=== PATIENT | female | born 1995 | race Caucasian/White ===

== ENCOUNTER 2016-07-23 20:55 | Emergency (ER) | payer OTHER ==
[2016-07-23 21:11] VITALS: BP 142/78; PULSE 61; TEMP 98.3; BMI 22.1
[2016-07-23 21:35] LABS: URINE APPEARANCE CLOUDY; URINE BILIRUBIN NEGATIVE (NEGATIVE); URINE COLOR LTYELLOW; URINE GLUCOSE (UA) NEGATIVE (NEGATIVE); URINE KETONE NEGATIVE (NEGATIVE); URINE NITRITE NEGATIVE (NEGATIVE); URINE UROBILINOGEN NEGATIVE E.U./dl (0.2-1.0)
[2016-07-23 21:36] LABS: URINE BLOOD 3+ (NEGATIVE); URINE LEUK ESTERASE 3+ (NEGATIVE); URINE PROTEIN 1+ (NEGATIVE)
[2016-07-23 21:40] LABS: URINE BACTERIA MODERATE /hpf (NONE SEEN); URINE MUCUS RARE; URINE RBC 4 /hpf (0-3); URINE WBC 747 /hpf (3-5)
[2016-07-23] MEDS ORDERED: CEPHALEXIN MONOHYDRATE 500 MG CAPSULE (UD) PO ONE (21:40)
[2016-07-23] MEDS ORDERED: PHENAZOPYRIDINE HCL 100 MG TABLET (FP) PO ONE (21:40)
--- NOTE | 2016-07-23 21:52 | PDOC ---
History of Present Illness - General Chief Complaint: Urinary Problem Stated Complaint: PAIN UPON URINATION Time Seen by Provider: 07/23/16 21:13 History Source: Patient Exam Limitations: No Limitations - History of Present Illness Initial Comments: 07/23/16 21:48 CHIEF COMPLAINT: Burning on urination HISTORY OF PRESENT ILLNESS: This is an otherwise healthy 20 year old female who presents for evaluation of 3 days of suprapubic pain, dysuria, and hematuria. She denies fevers/chills, nausea, flank pain, or any other symptoms. Patient is afebrile. REVIEW OF SYSTEMS: GENERAL/CONSTITUTIONAL: No fevers/chills. No nightsweats or weight loss. PULM: No cough or shortness of breath. CARDIAC: No chest pain or palpitations. GI: No nausea, vomiting, diarrhea, or constipation. : See HPI. PHYSICAL EXAM: GENERAL: Alert, oriented x 3, no acute distress. PULM: Lungs CTAB. HEART: RRR, S1/S2, no m/r/g. ABD: Soft, non-tender, non-distended. EXT: No calf tenderness, no edema SKIN: Warm and dry. Past History - Past Medical History Allergies/Adverse Reactions: Allergies Allergy/AdvReac Type Severity Reaction Status Date / Time No Known Allergies Allergy Verified 07/23/16 21:08 Home Medications: Ambulatory Orders Cephalexin Monohydrate [Keflex -] 500 mg PO Q6H #20 capsule 07/23/16 Phenazopyridine HCl [Pyridium] 200 mg PO TID #9 tablet 07/23/16 - Psycho/Social/Smoking Cessation Hx Suicidal Ideation: No Smoking History: Never smoked Have you smoked in the past 12 months: No Number of Cigarettes Smoked Daily: 0 Information on smoking cessation initiated: No Hx Alcohol Use: No Drug/Substance Use Hx: No *Physical Exam - Vital Signs Last Vital Signs Temp Pulse Resp BP Pulse Ox 98.3 F 61 14 142/78 96 07/23/16 21:09 07/23/16 21:09 07/23/16 21:09 07/23/16 21:09 07/23/16 21:09 ED Treatment Course - ADDITIONAL ORDERS Additional order review: Laboratory Results 07/23/16 21:15 Urine Color Ltyellow Urine Appearance Cloudy Urine pH 6.0 Ur Specific [place] 1.005 Urine Protein 1+ H Urine Glucose (UA) Negative Urine Ketones Negative Urine Blood 3+ H Urine Nitrite Negative Urine Bilirubin Negative Urine Urobilinogen Negative Ur Leukocyte Esterase 3+ H D Urine HCG, Qual Negative Medical Decision Making - Medical Decision Making 09/29/16 11:09 A/P: 20 year old female with suprapubic pain, dysuria, and hematuria. No symptoms to suggest sepsis or pyelonephiritis. 1. UA with 747 WBCs, consistent with UTI 2. Culture sent 3. Will treat with Keflex *DC/Admit/Observation/Transfer Diagnosis at time of Disposition: Urinary tract infection Qualifiers: Urinary tract infection type: acute cystitis Hematuria presence: without hematuria Qualified Code(s): N30.00 - Acute cystitis without hematuria - Discharge Dispostion Disposition: HOME Condition at time of disposition: Stable Admit: No - Prescriptions Prescriptions: Cephalexin Monohydrate [Keflex -] 500 mg PO Q6H #20 capsule Phenazopyridine HCl [Pyridium] 200 mg PO TID #9 tablet - Referrals Referrals: Ian Murillo MD [Primary Care Provider] - - Patient Instructions Printed Discharge Instructions: DI for Urinary Tract Infection (UTI) Additional Instructions: -Take Keflex (antibiotic) and Pyridium (pain medication for the bladder) as prescribed -Follow up with your primary care doctor -Return here for back pain, fever, vomiting, or any other concerning symptoms
[2016-07-23] MEDS ORDERED: CEPHALEXIN MONOHYDRATE 500 MG CAPSULE (UD) ONE (22:02)
[2016-07-23] MEDS ORDERED: PHENAZOPYRIDINE HCL 100 MG TABLET (FP) ONE (22:02)
== END 2016-07-23 22:24 | disposition home or self-care (01) ==
LOC: JERFT 20:55
DX: N30.00 Acute cystitis without hematuria (principal)
CPT/HCPCS: 81003; 81015; 84703; 87086; 99281-25